=== PATIENT | male | born 1990 | race African-American/Black ===

== ENCOUNTER 2020-06-12 15:29 | Emergency (ER) | payer OTHER ==
[~2020-06-12] VITALS: Ht 180.3 cm; Wt 81.7 kg
[2020-06-12 16:31] LABS: URINE BILIRUBIN NEGATIVE (Negative); URINE BLOOD NEGATIVE (Negative); URINE CLARITY CLEAR; URINE COLOR YELLOW; URINE GLUCOSE-RANDOM* NEGATIVE (Negative); URINE KETONES NEGATIVE (Negative); URINE LEUKOCYTES-REFLEX NEGATIVE (Negative); URINE NITRITE-REFLEX NEGATIVE (Negative); URINE PROTEIN (DIPSTICK) NEGATIVE (Negative); URINE SPECIFIC GRAVITY 1.015 (1.005-1.035); URINE UROBILINOGEN 0.2 E.U./dl (0.2-1.0)
[2020-06-12 16:35] LABS: ABSOLUTE NEUTROPHILS 2.7 thou/uL (1.4-8.2); BASOPHILS 0.8 % (0.0-2.0); EOSINOPHILS 0.5 % (0.0-3.0); HEMATOCRIT 41.6 % (42.0-52.0); HEMOGLOBIN 14.2 gm/dL (14.0-18.0); LYMPHOCYTES 51.7 % (24.0-44.0); MCH 30.4 pg (26.0-34.0); MCHC 34.1 g/dL (28.0-37.0); MCV 89.2 fL (80.0-100.0); MONOCYTES 7.4 % (1.0-8.0); PLATELET COUNT 308 thou/uL (150-400); POLYS 39.6 % (36.0-66.0); RBC 4.66 mil/uL (4.50-6.00); RDW 13.3 % (10.5-14.5); WBC 6.9 thou/uL (4.0-11.0)
[2020-06-12 16:48] LABS: CALCIUM 8.5 mg/dL (8.5-10.1); CREATININE 0.9 mg/dL (0.7-1.3)
[2020-06-12 16:54] LABS: TOTAL BILIRUBIN 1.8 mg/dL (0.2-1.0); TOTAL PROTEIN 7.5 g/dL (6.4-8.2)
[2020-06-12] MEDS ORDERED: NEXIUM40 MG PO (17:05)
[2020-06-12] MEDS ORDERED: ZOFRAN ODT4 MG PO (17:05)
[2020-06-12 17:27] VITALS: BP 136/74
--- NOTE | 2020-06-13 07:11 | EKG ---
[place] [address] [facility] [place] [employer] [address] ELECTROCARDIOGRAM REPORT Name: JOSETTE DAVILA Room #: DEP Angelo#: [id number] Admission: 06/12/20 Attend Phys: Discharge: 06/12/20 Date of : [birth year] Report #: [id number] [facility] ED Test Date: 2020-06-12 Test Time: 15:45:06 Pat Name: JOSETTE DAVILA Department: Room: Gender: Clinical Rehabilitation Specialist: MEREDITH : 1990 Requested By: Minesh Yang Order Number: [id number] MD: Peterson Chavez Measurements Intervals [place] Rate: 117 P: 82 OR: 85 QRS: 49 QRSD: 87 T: 42 QT: 308 QTc: 430 Interpretive Statements Sinus tachycardia Probable left atrial enlargement Probable left ventricular hypertrophy J Point elev, probable normal early repol pattern No previous ECG available for comparison Electronically Signed On 06-13-2020 7:11:38 KIER [employer]ER by Peterson Chavez [email or web address] <ELECTRONICALLY SIGNED> By: Peterson Chavez MD, [facility] 06/13/20 0711 1545 1545 Peterson Chavez MD, FACC /EPI
== END 2020-06-12 17:28 | disposition home or self-care (01) ==
LOC: ER 15:29 → EDBD 15:29 → ER 17:28
PROVIDERS: Emergency Medicine
DX: F10.129 Alcohol abuse with intoxication, unspecified (principal); K29.20 Alcoholic gastritis without bleeding; Y90.6 Blood alcohol level of 120-199 mg/100 ml